=== PATIENT | female | born 1995 | race Caucasian/White ===

== ENCOUNTER 2023-04-07 19:09 | Emergency (ER) | payer SELFPAY ==
[~2023-04-07] VITALS: Ht 157.5 cm; Wt 68.0 kg
[2023-04-07 19:37] VITALS: O2SAT 98
[2023-04-07] MEDS ORDERED: IV NORMAL SALINE 1000 ML BAG IV ONE (19:45)
[2023-04-07] MEDS ORDERED: KETOROLAC TROMETHAMINE 15 MG INJ IVP ONE (19:45)
[2023-04-07] MEDS ORDERED: METOCLOPRAMIDE HCL 10 MG/2 ML VIAL IV ONE (19:45)
[2023-04-07] MEDS ORDERED: METOCLOPRAMIDE HCL 10 MG/2 ML VIAL ONE (19:51)
[2023-04-07] MEDS ORDERED: KETOROLAC TROMETHAMINE 30 MG INJ ONE (19:51)
[2023-04-07 20:37] LABS: *BILIRUBIN,URIN NEGATIVE (NEGATIVE); *BLOOD, URINE 3+ (NEGATIVE); *CLARITY,URINE CLOUDY (CLEAR); *COLOR,URINE YELLOW (YELLOW); *KETONES,URINE NEGATIVE (NEGATIVE); *PROTEIN,URINE 1+ (NEGATIVE); *UROBILINOGEN,URINE 0.2 E.U./dl (NORMAL); LEUKOCYTE ESTERASE ,URINE TRACE (NEGATIVE); NITRITE, URINE NEGATIVE (NEGATIVE); UGLUCOSE NEGATIVE (NEGATIVE)
[2023-04-07 21:28] LABS: WBC,URINE 0-3 /HPF (0-3)
[2023-04-07 21:33] LABS: BACTERIA,URINE FEW /HPF (NONE SEEN)
[2023-04-07 21:34] LABS: SQUAMOUS EPITHELIAL CELL,UR FEW /HPF (NONE SEEN); URINE AMORPHOUS URATE MODERATE /HPF
== END 2023-04-07 20:51 | disposition left against medical advice (07) ==
LOC: ER 19:21
DX: R10.32 Left lower quadrant pain (principal); R11.2 Nausea with vomiting, unspecified; Z88.2 Allergy status to sulfonamides
CPT/HCPCS: 99284; 96374; 96361; 96375; 81001; J1885; J2765; J7040; A4606; A4663